=== PATIENT | female | born 2000 | race Two or more races ===

== ENCOUNTER 2025-08-14 07:10 | Outpatient (CLI) | payer BC, SELFPAY ==
--- NOTE | 2025-08-14 07:15 | CRLHL7_ITS ---
For Patients: As a result of the Cures Act, medical imaging exams and procedure reports are released immediately into your electronic medical record. You may view this report before your referring provider. If you have questions, please contact your health care provider. OB ULTRASOUND INDICATION: Dating. TECHNIQUE: Real time grayscale imaging of the fetus was performed. Transabdominal. LMP: 05/24/2025. NERISSA by LMP: 02/28/2026. GA: 11 w, 5 d. Previous US: No. CRL: 4.0 cm. 11 w 0 d. NERISSA: 03/05/2026. FHR: 173 BPM. Gestational sac: 4.1 cm. Appears within normal limits. Yolk sac: 4.9 mm. Appears within normal limits. Right ovary: Within normal limits. 4.2 x 2.9 x 2.9 cm. CL. Left ovary: Within normal limits. 3.3 x 1.2 x 2.4 cm. IMPRESSION: 1. Single-living intrauterine measures 11 weeks 0 days with sonographic due date 03/05/2026. 2. Small subchorionic hemorrhage measures 2.0 x 0.5 x 2.1 cm. Marc Frazier M.D. Diagnostic Radiologist [email or web address]/Dictated by: Marc Frazier MD @ 08/14/2025 8:35:00 AM (Electronically Signed)
== END 2025-08-14 07:11 | disposition home or self-care (01) ==
LOC: US 07:13
PROVIDERS: Visit Provider Physician Assistant
DX: O20.9 Hemorrhage in early pregnancy, unspecified (principal); Z3A.11 11 weeks gestation of pregnancy
CPT/HCPCS: 76801; 83021; 86592; 86703; 86704; 86706; 86762; 86787; 86803; 86850; 86900; 86901; 87086; 87340; 87491; 87591; 87624; T1013

== ENCOUNTER 2025-08-14 08:06 | Outpatient (CLI) | payer BC, SELFPAY ==
[2025-08-14 13:27] LABS: Chlamydia DNA Amplified* NOT DETECTED (No Detected); GC DNA Amplified* NOT DETECTED (No Detected)
[2025-08-19 01:27] LABS: HPV Source Cervix
[2025-08-19 11:43] LABS: Pap Test Digital Imaging Done; Pap Test Reviewed by Pathologi Done
[2025-08-19 23:49] LABS: HPV Genotype 16 by TMA Not Detected; HPV Genotype 18/45 by TMA Not Detected
== END 2025-08-14 08:07 | disposition home or self-care (01) ==
PROVIDERS: Visit Provider Physician Assistant
DX: Z34.91 Encounter for supervision of normal pregnancy, unspecified, first trimester (principal)
CPT/HCPCS: 83020; 83021; 85660; 86592; 86703; 86704; 86706; 86762; 86787; 86803; 86850; 86900; 86901; 87086; 87340; 87491; 87591; 87624; 87625; 88141; 88142; 88175

== ENCOUNTER 2025-10-15 14:01 | Outpatient (CLI) | payer BC, SELFPAY ==
--- NOTE | 2025-10-15 14:00 | CRLHL7_ITS ---
For Patients: As a result of the Century Cures Act, medical imaging exams and procedure reports are released immediately into your electronic medical record. You may view this report before your referring provider. If you have questions, please contact your health care provider. OB ULTRASOUND NERISSA by LMP: 02/28/2026. GA: 20 w, 4 d. INDICATION: anatomy. TECHNIQUE: Real time foote scale imaging of the fetus was performed. Transabdominal imaging performed. position: Multiple positions. Cervix: Visualized. Technique: Transabdominal. Length of closed cervix: 4.2 cm. Placenta/cord: Placental position: Posterior. Technique: Transabdominal. Placenta tip to internal OS: 7.7 cm. Umbilical Cord: 3-vessel cord. Placenta insertion: Central. Amniotic Fluid: 4.1 cm SDP (greater than/equal to: 2- less than 8 cm). SURVEY: Observed Structures. Calvarium/Spine: Cerebellum: 2.0 cm, 20 w 1 d. Cisterna Magna: 2.8 mm. Nuchal Fold: 4.4 mm. Lateral Ventricle: 4.9 mm. CSP: Yes. Midline Falx: Yes. Choroid Plexus: Yes. Spine: Yes. Abdomen: Stomach: Yes. Abd Cord Insertion: Yes. Urinary Bladder: Yes. Kidneys: Yes. Diaphragm: Yes. Face: Nose/lips: Yes. Orbital view: Yes. Profile: Yes. Limbs: Upper Extremities: Yes. Lower Extremities: Yes. Hands: Yes. Feet: Yes. Vascular: 4-Chamber Heart: Yes. LVOT: Yes. RVOT: Yes. 3VV: Yes. 3VTV: Yes. BPD: 4.3 cm. 19 w, 0 d, 4.0 percent. HC: 16.5 cm. 19 w, 1 d, less than 3 percent. AC: 14.3 cm. 19 w, 5 d, 16.9 percent. FL: 3.1 cm. 19 w, 4 d, 11.8 percent. FL/AC ratio: 21.52 percent. HC/AC ratio: 1.15. heart rate: 154 bpm. age by this US: 19 w, 4 d. NERISSA by this US: 03/07/2026. EFW: 298.50 g. Weight: 0 lbs, 11 oz. Percentile by NERISSA: 6.7 percent. IMPRESSION: 1. Normal anatomic survey. 2. Sonographic gestational age 19 weeks 4 days with sonographic due date 03/07/2026. Sonographic age is 1 week behind the clinical age. 3. Estimated weight 7th percentile. Abdominal circumference 17th percentile. Head circumference less than 3rd percentile. BPD 4th percentile. 4. Umbilical artery SD ratio average of 4.0 although there are measurements as high as 7.3 with decreased diastolic blood flow which remains antegrade. This could suggest placental insufficiency and close follow-up is recommended along with MFM consult. Mrac Frazier M.D. Diagnostic Radiologist [email or web address]/Dictated by: Marc Frazier MD @ 10/15/2025 3:44:00 PM (Electronically Signed)
== END 2025-10-15 14:02 | disposition home or self-care (01) ==
LOC: US 14:02
PROVIDERS: Visit Provider Obstetrics & Gynecology
DX: O36.5920 Maternal care for other known or suspected poor fetal growth, second trimester, not applicable or unspecified (principal); Z3A.19 19 weeks gestation of pregnancy
CPT/HCPCS: 76805; 76820; T1013